=== PATIENT | female | born 1945 | race Caucasian/White ===

== ENCOUNTER → 2017-08-09 | Outpatient (CLI) | payer OTHER, MEDICARE ==
[2016-03-07 16:31] VITALS: BP 141/67
--- NOTE | 2017-08-10 13:11 | MRI ---
STUDY: MRI OF THE CERVICAL SPINE HISTORY: Disc degeneration. Neck pain, numbness and tingling. Comparison: CT neck from September 12, 2012. Technique: An MRI of the cervical spine including sagittal T1, T2, and T2 STIR, axial T1, and T2 FSE images was performed using standard departmental protocol. Findings: Sagittal images: Visualized portions of the posterior fossa are within normal limits. The craniocervical junction is u nremarkable. Vertebral body heights and alignment are within normal limits. Marrow signal is age-appr opriate. There is no evidence for fracture or significant bone marrow edema. There is no significant prevertebral soft tissue swelling. The surrounding paraspinal soft tissues are unremarkable. There is no evidence of cord compression. No intrinsic signal abnormalities are identified in the spinal co rd itself. Axial images: C2 -- C3: There is a posterior disc osteophyte complex. The central canal and neural foramina are rose quate at this level. C3 -- C4: There is a posterior disc osteophyte complex and bilateral uncovertebral osteophyte formati on. There is right greater than left facet arthropathy. The central canal is adequate. There is moder ate right and mild left neural foraminal stenosis at this level. C4 -- C5: There is a posterior disc osteophyte complex and bilateral uncovertebral osteophyte formati on. The combination of these findings results in contouring of the ventral thecal sac and moderate sp inal stenosis. There is mild right and moderate left neural foraminal stenosis at this level. C5 -- C6: There is a posterior disc osteophyte complex and bilateral uncovertebral osteophyte formati on. This results in contouring of the ventral aspect of spinal cord and moderate spinal stenosis. The re is mild left and moderate right neural foraminal stenosis at this level. C6 -- C7: There is a posterior disc osteophyte complex and bilateral uncovertebral osteophyte formati on. The combination of these findings results in moderate central canal stenosis. There is moderate b ilateral neural foraminal stenosis at this level. C7 -- T1: There is a posterior disc osteophyte complex. The central canal and neural foramina are rose quate. IMPRESSION: 1. Multilevel cervical spondylosis as described, probably most prominent C5/6 and C6/7. 2. Moderate spinal stenosis at C4/5, C5/6, and C6/7. 3. Multilevel neural foraminal stenosis. Please see above for detail. Reported By:
== END | disposition home or self-care (01) | DRG 552 ==
LOC: RAD 12:56
PROVIDERS: ATTEND Nurse Practitioner Family
DX: M50.30 Other cervical disc degeneration, unspecified cervical region (principal); M47.892 Other spondylosis, cervical region; M48.02 Spinal stenosis, cervical region
CPT/HCPCS: 72141